=== PATIENT | male | born 1975 | race Caucasian/White ===

== ENCOUNTER 2019-02-23 09:47 | Inpatient (IN) | payer MEDICAID, OTHER ==
[2019-02-23] MEDS ORDERED: Sodium Chloride 0.9% 1,000 ML IV STA (10:14)
[2019-02-23] MEDS ORDERED: Ondansetron 4 MG/2 ML SDV IVPUSH ONE ×3 (10:14→17:13)
[2019-02-23] MEDS ORDERED: Sodium Chloride 0.9% 10 ML Syringe FLUSH PRN (10:14)
[2019-02-23] MEDS ORDERED: HYDROmorphone 1 MG/ML Syringe IVPUSH ONE ×2 (10:15→13:07)
[2019-02-23] MEDS ORDERED: Sodium Chloride 0.9% 1,000 ML IV SCH (14:00)
--- NOTE | 2019-02-23 14:00 | EDM.PDOC ---
<ShelbyhardikJamie Leon - Last Filed: 02/23/19 13:54> ED HPI GENERAL MEDICAL PROBLEM - General Chief Complaint: Gastrointestinal Problem Stated Complaint: VOMITING Time Seen by Provider: 02/23/19 10:05 Source of Information: Reports: Patient History Limitations: Reports: No Limitations - History of Present Illness INITIAL COMMENTS - FREE TEXT/NARRATIVE: The patient presents with abdominal pain, nausea and vomiting This has been going on for about a week. He was seen here last month for the same and had a work up with labs. He did better for a week. He was seen at the clinic 2 weeks ago. He was found to have mono. He says he has no appendix. He has no fever or chills. He has no chest pain or shortness of breath. He says he cannot keep anything down. He has a nerve stimulator in his back. He has no dysuria or hematuria. Onset: Gradual Duration: Week(s): Location: Reports: Abdomen Quality: Reports: Sharp Severity: Severe Improves with: Reports: None Worsens with: Reports: None Associated Symptoms: Reports: Nausea/Vomiting. 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 [No Known Home Meds] 02/23/19 [History] Past Medical History - Past Surgical History GI Surgical History: Reports: Appendectomy, Hernia Repair/Other Neurological Surgical History: Reports: Spinal Fusion Musculoskeletal Surgical History: Reports: Other (See Below) Other Musculoskeletal Surgeries/Procedures:: rodding of tibia, left ankle fracture, Social & Family History - Tobacco Use Packs/Tins Daily: 0.3 Used Tobacco, but Quit: No - Caffeine Use Caffeine Use: Reports: None - Recreational Drug Use Recreational Drug Use: No ED ROS GENERAL - Review of Systems Review Of Systems: See Below Constitutional: Reports: No Symptoms HEENT: Reports: No Symptoms Respiratory: Reports: No Symptoms Cardiovascular: Reports: No Symptoms Endocrine: Reports: No Symptoms GI/Abdominal: Reports: Abdominal Pain, Nausea, Vomiting : Reports: No Symptoms Musculoskeletal: Reports: No Symptoms Skin: Reports: No Symptoms Neurological: Reports: No Symptoms ED EXAM, GI/ABD - Physical Exam Exam: See Below Exam Limited By: No Limitations General Appearance: Alert, No Apparent Distress Ears: Normal External Exam Nose: Normal Inspection Head: Atraumatic, Normocephalic Neck: Normal Inspection Respiratory/Chest: No Respiratory Distress, Lungs Clear, Normal Breath Sounds Cardiovascular: Regular Rate, Rhythm, No Edema, No Murmur GI/Abdominal Exam: Soft, No Organomegaly, No Mass, Tender (Moderate to severe pain to the abdomen and worse in the left upper abdomen) Back Exam: Normal Inspection Extremities: Normal Inspection Course - Vital Signs Last Recorded V/S: Last Vital Signs Temp 36.6 C 02/23/19 10:00 Pulse 93 02/23/19 10:00 Resp 18 02/23/19 10:00 BP 146/97 H 02/23/19 10:00 Pulse Ox 93 L 02/23/19 10:00 - Orders/Labs/Meds Orders: Active Orders 24 hr Category Date Time Status Admission Status [Patient Status] [ADT] Routine ADT 02/23/19 17:54 Active Ambulate [RC] PER UNIT ROUTINE Care 02/23/19 17:58 Active CIWAA Assessment [RC] Q4H Care 02/23/19 18:02 Active Communication Order [RC] ASDIRECTED Care 02/23/19 18:11 Active NG [Gastrointestinal Tube Mgmt] [RC] ASDIRECTED Care 02/23/19 17:56 Active Peripheral IV Care [RC] . DIRECTED Care 02/23/19 10:14 Active Abdomen Ltd [US] Stat Exams 02/23/19 11:11 Taken Abdomen Pelvis w Cont [CT] Stat Exams 02/23/19 13:37 Taken BASIC METABOLIC PANEL,BMP [CHEM] AM Lab 02/24/19 05:11 Ordered BASIC METABOLIC PANEL,BMP [CHEM] AM Lab 02/25/19 05:11 Ordered D5 1/2 NS w/ 20 mEq/L KCl 1,000 ml Med 02/23/19 18:00 Active IV ASDIRECTED LORazepam [Ativan] Med 02/23/19 18:08 Active 1 mg IVPUSH Q1H PRN Sodium Chloride 0.9% [Normal Saline] 1,000 ml Med 02/23/19 14:00 Active IV ASDIRECTED Sodium Chloride 0.9% [Saline Flush] Med 02/23/19 10:14 Active 10 ml FLUSH ASDIRECTED PRN ED Antiemetic Medication Reflex [OM.PC] Stat Oth 02/23/19 10:14 Ordered Peripheral IV Insertion Adult [OM.PC] Stat Ot 02/23/19 10:14 Ordered Schedule Procedure [COMM] Timed Oth 02/24/19 10:00 Ordered Medication Orders Sodium Chloride (Normal Saline) 1,000 mls @ 200 mls/hr IV ASDIRECTED TONY Last Admin: 02/23/19 14:12 Dose: 200 mls/hr Potassium Chloride/Dextrose/Sod Cl (D5 1/2 Ns W/ 20 Meq/L Kcl) 1,000 mls @ 85 mls/hr IV ASDIRECTED TONY Lorazepam (Ativan) 1 mg IVPUSH Q1H PRN PRN Reason: Agitation Sodium Chloride (Saline Flush) 10 ml FLUSH ASDIRECTED PRN PRN Reason: Keep Vein Open Last Admin: 02/23/19 10:57 Dose: 10 ml Labs: Laboratory Tests 02/23/19 02/23/19 02/23/19 Range/Units 10:20 10:20 10:45 WBC 7.80 (4.23-9.07) K/mm3 RBC 5.42 (4.63-6.08) M/mm3 Hgb 17.1 (13.7-17.5) gm/L Hct 49.6 (40.1-51.0) % MCV 91.5 D (79.0-92.2) fl MCH 31.5 (25.7-32.2) pg MCHC 34.5 (32.2-35.5) g/dl RDW Std Deviation 40.9 (35.1-43.9) fL Plt Count 262 D (163-337) K/mm3 MPV 8.7 L (9.4-12.3) fl Neut % (Auto) 50.6 (34.0-67.9) % Lymph % (Auto) 39.7 (21.8-53.1) % [place] % (Auto) 6.3 (5.3-12.2) % Eos % (Auto) 2.7 (0.8-7.0) Baso % (Auto) 0.4 (0.1-1.2) % Neut # (Auto) 3.95 (1.78-5.38) K/mm3 Lymph # (Auto) 3.10 (1.32-3.57) K/mm3 [place] # (Auto) 0.49 (0.30-0.82) K/mm3 Eos # (Auto) 0.21 (0.04-0.54) K/mm3 Baso # (Auto) 0.03 (0.01-0.08) K/mm3 Sodium 139 (136-145) mEq/L Potassium 4.0 (3.5-5.1) mEq/L Chloride 102 (98-107) mEq/L Carbon Dioxide 24 (21-32) mEq/L Anion Gap 17.0 H (5-15) BUN 12 (7-18) mg/dL Creatinine 0.9 (0.7-1.3) mg/dL Est Cr Clr Drug Dosing 109.27 mL/min Estimated GFR (MDRD) > 60 (>60) mL/min BUN/Creatinine Ratio 13.3 L (14-18) Glucose 107 H (74-106) mg/dL Calcium 8.5 (8.5-10.1) mg/dL Total Bilirubin 0.5 (0.2-1.0) mg/dL AST 50 H (15-37) U/L ALT 98 H (16-63) U/L Alkaline Phosphatase 84 (46-116) U/L Total Protein 7.6 (6.4-8.2) g/dl Albumin 4.1 (3.4-5.0) g/dl Globulin 3.5 gm/dL Albumin/Globulin Ratio 1.2 (1-2) Lipase 176 (73-393) U/L Urine Color Light yellow (Yellow) Urine Appearance Clear (Clear) Urine pH 6.0 (5.0-8.0) Ur Specific [place] <=1.005 (1.005-1.030) Urine Protein Negative (Negative) Urine Glucose (UA) Negative (Negative) Urine Ketones Negative (Negative) Urine Occult Blood Negative (Negative) Urine Nitrite Negative (Negative) Urine Bilirubin Negative (Negative) Urine Urobilinogen 0.2 (0.2-1.0) Ur Leukocyte Esterase Negative (Negative) Urine RBC Not seen (0-5) /hpf Urine WBC Not seen (0-5) /hpf Ur Epithelial Cells 0-5 (0-5) /hpf Urine Bacteria Rare (FEW) /hpf Urine Mucus Not seen (FEW) /hpf Meds: Medications Generic Name Dose Route Start Last Admin Trade Name Freq PRN Reason Stop Dose Admin Sodium Chloride 1,000 mls @ 200 mls/hr 02/23/19 14:00 02/23/19 14:12 Normal Saline IV 200 mls/hr ASDIRECTED TONY Administration Potassium Chloride/Dextrose/Sod Cl 1,000 mls @ 85 mls/hr 02/23/19 18:00 D5 1/2 Ns W/ 20 Meq/L Kcl IV ASDIRECTED TONY Lorazepam 1 mg 02/23/19 18:08 Ativan IVPUSH Q1H PRN Agitation Sodium Chloride 10 ml 02/23/19 10:14 02/23/19 10:57 Saline Flush FLUSH 10 ml ASDIRECTED PRN Administration Keep Vein Open Discontinued Medications Generic Name Dose Route Start Last Admin Trade Name Freq PRN Reason Stop Dose Admin Diatrizoate Meglum/Diatrizoate Sod 90 ml 02/23/19 15:34 02/23/19 15:41 Gastrografin 37% PO 02/23/19 15:35 90 ml ONETIME ONE Administration Fentanyl 50 mcg 02/23/19 17:18 02/23/19 17:40 Sublimaze IVPUSH 02/23/19 17:19 50 mcg ONETIME ONE Administration Hydromorphone HCl 1 mg 02/23/19 10:15 02/23/19 10:41 Dilaudid IVPUSH 02/23/19 10:16 1 mg ONETIME ONE Administration Hydromorphone HCl 1 mg 02/23/19 13:07 02/23/19 13:16 Dilaudid IVPUSH 02/23/19 13:08 1 mg ONETIME ONE Administration Sodium Chloride 1,000 mls @ 1,000 mls/hr 02/23/19 10:14 02/23/19 10:41 Normal Saline IV 02/23/19 11:13 1,000 mls/hr .BOLUS STA Administration Iopamidol 100 ml 02/23/19 15:34 02/23/19 15:43 Isovue-300 (61%) IVPUSH 02/23/19 15:35 100 ml ONETIME ONE Administration Lorazepam 1 mg 02/23/19 17:13 02/23/19 17:41 Ativan IVPUSH 02/23/19 17:14 1 mg ONETIME ONE Administration Ondansetron HCl 4 mg 02/23/19 10:14 02/23/19 10:41 Zofran IVPUSH 02/23/19 10:15 4 mg ONETIME ONE Administration Ondansetron HCl 4 mg 02/23/19 14:36 02/23/19 15:28 Zofran IVPUSH 02/23/19 14:37 4 mg ONETIME ONE Administration Ondansetron HCl 4 mg 02/23/19 17:13 02/23/19 17:36 Zofran IVPUSH 02/23/19 17:14 4 mg ONETIME ONE Administration Sodium Chloride 10 ml 02/23/19 15:34 02/23/19 15:43 Saline Flush FLUSH 02/23/19 15:35 10 ml ONETIME ONE Administration - Re-Assessments/Exams Free Text/Narrative Re-Assessment/Exam: 02/23/19 14:05 I ordered an IV NS 1L bolus, zofran 4mg IV, dilaudid 1mg IV, labs, UA and a CT of his abdomen and pelvis. His CBC and CMP look good. His UA shows no UTI or blood. He has the nerve stimulator and says he cannot get a CT. I tried to convince him he can but he would not listen. I then ordered a US. The US showed nothing acute. He is still having pain so I ordered something more for pain. I called [facility] and an electro optical engineer said he can get a CT scan. He was okay with it. It is the end of my shift. I will have Dr Babcock take over. Departure - Departure Disposition: Refer to Observation Clinical Impression: Partial gastric outlet obstruction - Discharge Information Referrals: PCP,Not In Area [Primary Care Provider] - Forms: ED Department Discharge <Reyes Babcock - Last Filed: 02/23/19 18:56> Course - Re-Assessments/Exams Free Text/Narrative Re-Assessment/Exam: 02/23/19 14:32 I assumed Care from Dr. Wu and evaluated and examined the patient his nauseous is starting to return he is awaiting his CAT scan at this point he's been keeping fluids down pretty good since then emergency room now over 3 hours but his Zofran is starting to wear off abdominal exam shows active bowel sounds very tender left side of his abdomen very difficult to evaluate. 02/23/19 16:[address] which is very concerning for a distended stomach with oral contrast into the distal esophagus because is no place to go is a relative obstruction at the gastroduodenal junction. I discussed this with Dr. Montemayor surgeon mattress and foundation sewer who will come and evaluate the patient after we get an NG tube in him. Dr. Montemayor cannot come in right away as she is starting a procedure very soon that shouldn't take too long. 02/23/19 18:54 We attempted NG tube several times and this could not be obtained. Dr. Montemayor was contacted recommended just holding off on the nasogastric tube. Anticipate EGD tomorrow nothing by mouth after midnight and if they need to place an NG tube at that time they will. Departure - Departure Time of Disposition: 17:55
[2019-02-23] MEDS ORDERED: Diatrizoate Meglumine/Diatrizoate Sodium 37% 120 ML Bottle PO ONE (15:34)
[2019-02-23] MEDS ORDERED: Sodium Chloride 0.9% 10 ML Syringe FLUSH ONE (15:34)
[2019-02-23] MEDS ORDERED: Iopamidol 612 MG/ML 100 ML Bottle IVPUSH ONE (15:34)
[2019-02-23] MEDS ORDERED: LORazepam 2 MG/ML SDV IVPUSH ONE (17:13)
[2019-02-23] MEDS ORDERED: fentaNYL 100 MCG/2 ML SDV IVPUSH ONE (17:18)
[2019-02-23] MEDS ORDERED: LORazepam 2 MG/ML SDV IVPUSH PRN (18:08)
[2019-02-23] MEDS: Morphine 2 MG/ML Syringe IVPUSH PRN (21:55)
--- NOTE | 2019-02-23 22:16 | HP ---
DATE OF ADMISSION: 02/23/2019 ADMITTING DIAGNOSIS: Duodenal obstruction. 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 He presents with a one month history of failure to thrive. He has been only able to tolerate small amounts of food. He has lost about 15 pounds. He says he eats and drinks sometimes even small amounts of food and vomits immediately. Prior to a month, ago, he said he was in his normal state of health. The patient has no previous episodes. He denies any previous abdominal pain or gastritis. He has no reflux or acid peptic disease. He never had an upper endoscopy. He can no longer tolerate his nausea and vomiting, so he presented to the ED today. CT scan showed duodenal obstruction. PAST MEDICAL HISTORY: Back pain. PAST SURGICAL HISTORY: He has had tibial rodding, left ankle fracture, spinal fusion in the cervical spine, left inguinal hernia repair, appendectomy. SOCIAL HISTORY: He drinks 6 to 12 beers daily. He smokes about a third of a pack of cigarettes daily. Denies illicit drug use. REVIEW OF SYSTEMS: A 10-system review is negative except for the nausea and vomiting as listed above. FAMILY HISTORY: Notable for gastric and pancreatic cancer in his father. The remainder of his family history is unremarkable. PHYSICAL EXAMINATION: GENERAL: He is alert. He is in no obvious distress. He looks comfortable. VITAL SIGNS: Temperature 98.6, pulse 93, respiration 18, blood pressure 146/97, saturating 93% on room air. HEAD AND NECK: Normocephalic, atraumatic. He is anicteric. His neck is supple. Full range of motion. LUNGS: Clear to auscultation bilaterally. HEART: Regular rate and rhythm. No clicks, murmurs, or rubs. ABDOMEN: Soft. He has some tenderness in the epigastrium and left upper quadrant. No rebound or guarding. He has a normal note to percussion. No hernias are palpable. No palpable masses. EXTREMITIES: No clubbing, cyanosis, or edema. No calf tenderness. INTEGUMENT: No rashes. No lesions. No petechiae. No jaundice. NEUROLOGIC: Cranial nerves are grossly intact. Nonfocal. His sensation and movement are preserved in all 4 extremities. PSYCHIATRIC: He has appropriate affect and demeanor. LABORATORY DATA: Labs are notable for normal white count with no left shift. Chemistries: Anion gap is 17, BUN and creatinine are within normal limits. BUN and creatinine ratio is 13.3, glucose 107, AST and ALT at 50 and 98. Bilirubin is notably 0.5. Urine is unremarkable. I have had a thorough review of the CT scan. It appears he has a duodenal obstruction at the third to fourth portion, it is a bit of an unusual location for duodenal obstruction from acid peptic disease. It is typically first to second portion. His stomach is very dilated, full of contrast. I do not appreciate contrast beyond the third portion of the duodenum. ASSESSMENT: Duodenal obstruction, likely secondary to duodenitis secondary to alcohol abuse. PLAN: I have recommended nasogastric tube to be placed to evacuate his stomach to prevent perforation and to improve his comfort. I will schedule him for an upper endoscopy. This will be done tomorrow as this is clearly not an emergency. My findings during the endoscopy will determine future treatment. At this point, I do not see a need to place him on Protonix since he has no history of acid peptic disease. I will hold his Lovenox until I will be performing biopsies tomorrow morning. In the meantime, I will give him IV fluids overnight and see him in the morning. IRISH /[id number]
[2019-02-24] MEDS: D5 1/2 NS w/ 20 mEq/L KCl 1,000 ML IV SCH ×2 (00:08→14:42)
[2019-02-24] MEDS: Morphine 2 MG/ML Syringe IVPUSH PRN ×2 (02:36→07:02)
[2019-02-24] MEDS: Ondansetron 4 MG/2 ML SDV IVPUSH PRN ×2 (08:21→21:16)
--- NOTE | 2019-02-24 09:43 | PCM.PREANE ---
Preanesthetic Assessment - Anesthesia/Transfusion/Family Hx Anesthesia History: Prior Anesthesia Without Reaction Family History of Anesthesia Reaction: No Transfusion History: No Prior Transfusion(s) - Review of Systems General: Malaise Pulmonary: No Symptoms Cardiovascular: No Symptoms Gastrointestinal: Abdominal Pain, Constipation, Decreased Appetite, Nausea, Vomiting Neurological: No Symptoms, Numbness (fingers), Other (neurological stimulator in neck for chronic pain in neck and shoulder) - Physical Assessment NPO Status Date: 02/24/19 NPO Status Time: 00:00 Vital Signs: Last Vital Signs Temp 36.8 C 02/24/19 08:20 Pulse 90 02/24/19 08:20 Resp 14 02/24/19 08:20 BP 122/97 H 02/24/19 08:20 Pulse Ox 94 L 02/24/19 08:20 Height: 1.78 m Weight: 84.867 kg ASA Class: 3 Mental Status: Alert & Oriented x3 Airway Class: Mallampati = 2 Dentition: Reports: Normal Dentition Thyro-Mental Finger Breadths: 2 Mouth Opening Finger Breadths: 2 ROM/Head Extension: Limited/Partial Lungs: Clear to Auscultation, Normal Respiratory Effort Cardiovascular: Regular Rate, Regular Rhythm - Lab Values: Laboratory Last Values WBC 7.80 K/mm3 (4.23-9.07) 02/23/19 10:20 RBC 5.42 M/mm3 (4.63-6.08) 02/23/19 10:20 Hgb 17.1 gm/L (13.7-17.5) 02/23/19 10:20 Hct 49.6 % (40.1-51.0) 02/23/19 10:20 MCV 91.5 fl (79.0-92.2) D 02/23/19 10:20 MCH 31.5 pg (25.7-32.2) 02/23/19 10:20 MCHC 34.5 g/dl (32.2-35.5) 02/23/19 10:20 RDW Std Deviation 40.9 fL (35.1-43.9) 02/23/19 10:20 Plt Count 262 K/mm3 (163-337) D 02/23/19 10:20 MPV 8.7 fl (9.4-12.3) L 02/23/19 10:20 Neut % (Auto) 50.6 % (34.0-67.9) 02/23/19 10:20 Lymph % (Auto) 39.7 % (21.8-53.1) 02/23/19 10:20 [place] % (Auto) 6.3 % (5.3-12.2) 02/23/19 10:20 Eos % (Auto) 2.7 (0.8-7.0) 02/23/19 10:20 Baso % (Auto) 0.4 % (0.1-1.2) 02/23/19 10:20 Neut # (Auto) 3.95 K/mm3 (1.78-5.38) 02/23/19 10:20 Lymph # (Auto) 3.10 K/mm3 (1.32-3.57) 02/23/19 10:20 [place] # (Auto) 0.49 K/mm3 (0.30-0.82) 02/23/19 10:20 Eos # (Auto) 0.21 K/mm3 (0.04-0.54) 02/23/19 10:20 Baso # (Auto) 0.03 K/mm3 (0.01-0.08) 02/23/19 10:20 Sodium 137 mEq/L (136-145) 02/24/19 04:47 Potassium 4.1 mEq/L (3.5-5.1) 02/24/19 04:47 Chloride 105 mEq/L (98-107) 02/24/19 04:47 Carbon Dioxide 24 mEq/L (21-32) 02/24/19 04:47 Anion Gap 12.1 (5-15) 02/24/19 04:47 BUN 10 mg/dL (7-18) 02/24/19 04:47 Creatinine 1.0 mg/dL (0.7-1.3) 02/24/19 04:47 Est Cr Clr Drug Dosing 98.35 mL/min 02/24/19 04:47 Estimated GFR (MDRD) > 60 mL/min (>60) 02/24/19 04:47 BUN/Creatinine Ratio 10.0 (14-18) L 02/24/19 04:47 Glucose 83 mg/dL (74-106) 02/24/19 04:47 Calcium 8.2 mg/dL (8.5-10.1) L 02/24/19 04:47 Total Bilirubin 0.5 mg/dL (0.2-1.0) 02/23/19 10:20 AST 50 U/L (15-37) H 02/23/19 10:20 ALT 98 U/L (16-63) H 02/23/19 10:20 Alkaline Phosphatase 84 U/L (46-116) 02/23/19 10:20 Total Protein 7.6 g/dl (6.4-8.2) 02/23/19 10:20 Albumin 4.1 g/dl (3.4-5.0) 02/23/19 10:20 Globulin 3.5 gm/dL 02/23/19 10:20 Albumin/Globulin Ratio 1.2 (1-2) 02/23/19 10:20 Lipase 176 U/L (73-393) 02/23/19 10:20 Urine Color Light yellow (Yellow) 02/23/19 10:45 Urine Appearance Clear (Clear) 02/23/19 10:45 Urine pH 6.0 (5.0-8.0) 02/23/19 10:45 Ur Specific [place] <=1.005 (1.005-1.030) 02/23/19 10:45 Urine Protein Negative (Negative) 02/23/19 10:45 Urine Glucose (UA) Negative (Negative) 02/23/19 10:45 Urine Ketones Negative (Negative) 02/23/19 10:45 Urine Occult Blood Negative (Negative) 02/23/19 10:45 Urine Nitrite Negative (Negative) 02/23/19 10:45 Urine Bilirubin Negative (Negative) 02/23/19 10:45 Urine Urobilinogen 0.2 (0.2-1.0) 02/23/19 10:45 Ur Leukocyte Esterase Negative (Negative) 02/23/19 10:45 Urine RBC Not seen /hpf (0-5) 02/23/19 10:45 Urine WBC Not seen /hpf (0-5) 02/23/19 10:45 Ur Epithelial Cells 0-5 /hpf (0-5) 02/23/19 10:45 Urine Bacteria Rare /hpf (FEW) 02/23/19 10:45 Urine Mucus Not seen /hpf (FEW) 02/23/19 10:45 - Allergies Allergies/Adverse Reactions: Allergies Allergy/AdvReac Type Severity Reaction Status Date / Time No Known Allergies Allergy Verified 02/24/19 03:20 - Blood Blood Available: No Product(s) Available: None - Anesthesia Plan Pre-Op Medication Ordered: None - Acknowledgements Anesthesia Type Planned: General Anesthesia Pt an Appropriate Candidate for the Planned Anesthesia: Yes Pt/Guardian Understands and Agrees with Anesthesia Plan: Yes PreAnesthesia Questionnaire HEENT History: Reports: Impaired Vision, Other (See Below) Other HEENT History: wears glasses but currently broken Musculoskeletal History: Reports: Other (See Below) (fussion of neck C4, C5-C6) Neurological History: Reports: Concussion Hematologic History: Reports: Other (See Below) Other Hematologic History: history of having blood clots in his lungs - Infectious Disease History Infectious Disease History: Reports: Chicken Pox, Influenza, Mononucleosis - Past Surgical History HEENT Surgical History: Reports: None GI Surgical History: Reports: Appendectomy, Hernia Repair/Other Neurological Surgical History: Reports: Spinal Fusion Musculoskeletal Surgical History: Reports: Nerve Relocation, Other (See Below) Other Musculoskeletal Surgeries/Procedures:: rodding of tibia, left ankle fracture, fused bones in his neck and has cadaver bones in neck as well. - SUBSTANCE USE Smoking Status *Q: Light Tobacco Smoker Tobacco Use Within Last Twelve Months: Smokeless Tobacco, Snuff/Dip Second Hand Smoke Exposure: No Days Per Week of Alcohol Use: 7 Number of Drinks Per Day: 4 Total Drinks Per Week: 28 Date of Last Drink: 02/22/19 Recreational Drug Use History: No - HOME MEDS Home Medications: Home Meds Cetirizine [ZyrTEC] 1 tab PO BEDTIME PRN 02/24/19 [History] L.acidoph,Paracasei, B.lactis [Probiotic] 1 each PO DAILY 02/24/19 [History] - CURRENT (IN HOUSE) MEDS Current Meds: Current Medications Potassium Chloride/Dextrose/Sod Cl (D5 1/2 Ns W/ 20 Meq/L Kcl) 1,000 mls @ 85 mls/hr IV ASDIRECTED TONY Last Admin: 02/24/19 00:08 Dose: 85 mls/hr Lorazepam (Ativan) 1 mg IVPUSH Q1H PRN PRN Reason: Agitation Morphine Sulfate (Morphine) 2 mg IVPUSH Q2H PRN PRN Reason: Pain Last Admin: 02/24/19 07:02 Dose: 2 mg Ondansetron HCl (Zofran) 4 mg IVPUSH Q4H PRN PRN Reason: Nausea Last Admin: 02/24/19 08:21 Dose: 4 mg Sodium Chloride (Saline Flush) 10 ml FLUSH ASDIRECTED PRN PRN Reason: Keep Vein Open Last Admin: 02/23/19 10:57 Dose: 10 ml Discontinued Medications Diatrizoate Meglum/Diatrizoate Sod (Gastrografin 37%) 90 ml PO ONETIME ONE Stop: 02/23/19 15:35 Last Admin: 02/23/19 15:41 Dose: 90 ml Fentanyl (Sublimaze) 50 mcg IVPUSH ONETIME ONE Stop: 02/23/19 17:19 Last Admin: 02/23/19 17:40 Dose: 50 mcg Hydromorphone HCl (Dilaudid) 1 mg IVPUSH ONETIME ONE Stop: 02/23/19 10:16 Last Admin: 02/23/19 10:41 Dose: 1 mg Hydromorphone HCl (Dilaudid) 1 mg IVPUSH ONETIME ONE Stop: 02/23/19 13:08 Last Admin: 02/23/19 13:16 Dose: 1 mg Sodium Chloride (Normal Saline) 1,000 mls @ 1,000 mls/hr IV .BOLUS STA Stop: 02/23/19 11:13 Last Admin: 02/23/19 10:41 Dose: 1,000 mls/hr Sodium Chloride (Normal Saline) 1,000 mls @ 200 mls/hr IV ASDIRECTED TONY Last Admin: 02/23/19 14:12 Dose: 200 mls/hr Iopamidol (Isovue-300 (61%)) 100 ml IVPUSH ONETIME ONE Stop: 02/23/19 15:35 Last Admin: 02/23/19 15:43 Dose: 100 ml Lorazepam (Ativan) 1 mg IVPUSH ONETIME ONE Stop: 02/23/19 17:14 Last Admin: 02/23/19 17:41 Dose: 1 mg Ondansetron HCl (Zofran) 4 mg IVPUSH ONETIME ONE Stop: 02/23/19 10:15 Last Admin: 02/23/19 10:41 Dose: 4 mg Ondansetron HCl (Zofran) 4 mg IVPUSH ONETIME ONE Stop: 02/23/19 14:37 Last Admin: 02/23/19 15:28 Dose: 4 mg Ondansetron HCl (Zofran) 4 mg IVPUSH ONETIME ONE Stop: 02/23/19 17:14 Last Admin: 02/23/19 17:36 Dose: 4 mg Sodium Chloride (Saline Flush) 10 ml FLUSH ONETIME ONE Stop: 02/23/19 15:35 Last Admin: 02/23/19 15:43 Dose: 10 ml
[2019-02-24] MEDS ORDERED: Ondansetron 4 MG/2 ML SDV ONE (09:53)
[2019-02-24] MEDS ORDERED: fentaNYL 100 MCG/2 ML SDV ONE (09:54)
[2019-02-24] MEDS ORDERED: Propofol 200 MG/20 ML SDV ONE (09:54)
[2019-02-24] MEDS ORDERED: Lidocaine 1% 4 ML ONE (09:55)
[2019-02-24] MEDS ORDERED: Succinylcholine/Normal Saline 100 MG/5 ML Syringe ONE (09:55)
[2019-02-24] MEDS ORDERED: Midazolam 1 MG/ML 2 ML SDV ONE (09:55)
[2019-02-24] MEDS ORDERED: Lactated Ringers 1,000 ML ONE (10:12)
--- NOTE | 2019-02-24 10:34 | PCM.POSTAN ---
POST ANESTHESIA ASSESSMENT - MENTAL STATUS Mental Status: Alert, Oriented - VITAL SIGNS Vital Signs: Last Vital Signs Temp 36.8 C 02/24/19 08:20 Pulse 90 02/24/19 08:20 Resp 14 02/24/19 08:20 BP 122/97 H 02/24/19 08:20 Pulse Ox 94 L 02/24/19 08:20 - RESPIRATORY Respiratory Status: Respiratory Rate WNL, Airway Patent, O2 Saturation Stable, Supplemental Oxygen - CARDIOVASCULAR CV Status: Pulse Rate WNL, Blood Pressure Stable - GASTROINTESTINAL GI Status: No Symptoms - PAIN Pain Score: 0 - POST OP HYDRATION Hydration Status: Adequate & Stable - OBSERVATIONS Free Text/Narrative:: no anesthesia complications noted
--- NOTE | 2019-02-24 10:46 | PCM48HPAN ---
Post Anesthesia Note - EVALUATION WITHIN 48HRS OF ANESTHETIC Vital Signs in Normal Range: Yes Patient Participated in Evaluation: Yes Respiratory Function Stable: Yes Airway Patent: Yes Cardiovascular Function Stable: Yes Hydration Status Stable: Yes Pain Control Satisfactory: Yes Nausea and Vomiting Control Satisfactory: Yes Mental Status Recovered: Yes Vital Signs: Last Vital Signs Temp 36.8 C 02/24/19 08:20 Pulse 90 02/24/19 08:20 Resp 14 02/24/19 08:20 BP 122/97 H 02/24/19 08:20 Pulse Ox 94 L 02/24/19 08:20 - COMMENTS/OBSERVATIONS Free Text/Narrative:: no anesthesia complications noted
--- NOTE | 2019-02-24 10:56 | PN ---
DATE OF SERVICE: 02/24/2019 SUBJECTIVE: Events Overnight: The patient refused multiple attempts of a nasogastric tube placement. He continues to complain of pain and nausea secondary to duodenal obstruction. Both, I and multiple nurses have tried to explain to him that nasogastric tube will decompress him and make his nausea and pain improve substantially and it will also make his impending EGD far more safe because it will decrease his risk of aspiration during induction. He is still refusing any further attempts at placing a nasogastric tube; however, he is still complaining of nausea and abdominal pain. OBJECTIVE: GENERAL: This morning, he is alert and in no obvious distress. VITAL SIGNS: Temperature 98.2, pulse 90, respirations 14, blood pressure 122/97, saturating 94% on room air. HEAD AND NECK: Normocephalic and atraumatic. NECK: Supple. Full range of motion. LUNGS: Clear to auscultation bilaterally. HEART: Regular rate and rhythm. No clicks, murmurs, or rubs. ABDOMEN: Mildly distended. He is tender in the left upper quadrant and epigastrium. No generalized rebound or guarding. LABORATORY DATA: Labs showed glucose of 83, calcium 8.2, and BUN creatinine ratio of 10. The remainder of his chemistries are unremarkable. ASSESSMENT: Duodenal obstruction, likely related to alcoholic duodenitis. PLAN: He is on the CIWA protocol. He has been consented for an EGD. I have thoroughly discussed with him the major risks, benefits, and alternatives. The risks being aspiration, pneumonia, laryngeal spasm, bleeding, and further surgery. I have explained to him that if he has a complete obstruction, he will have to be transferred to a higher level of care. If there is a partial obstruction, we could try treating with conservative management and advancing his diet as tolerated. I suspect, he will have to be transferred. I will get a biopsy in the meantime to rule out a rare, but possible duodenal cancer and hopefully come up with a pathological reason for his obstruction, he expressed understanding. IRISH /[id number]
--- NOTE | 2019-02-24 14:10 | OR ---
DATE OF OPERATION: 02/24/2019 SURGEON: Jimmy Montemayor MD PREOPERATIVE DIAGNOSIS: 1. Duodenitis. 2. Duodenal obstruction. POSTOPERATIVE DIAGNOSIS: 1. Grade 1 esophagitis. 2. No evidence of duodenal obstruction. OPERATION PERFORMED: Diagnostic EGD. FINDINGS: Grade 1 esophagitis. The 4th, 3rd, 2nd and 1st portions of the duodenum were completely normal. There was no evidence of obstruction. No duodenitis. No gastritis. He has some mild esophagitis. This may be related to nasogastric tube placement, which was eventually unsuccessful. ANESTHESIA: General with endotracheal intubation. PATHOLOGY: None. ESTIMATED BLOOD LOSS: None. DISPOSITION: Stable at the end of the procedure. INDICATION: Cruz is a 43-year-old male who presented to the ED with abdominal pain, nausea, and vomiting. He drinks 6-12 beers daily. He had a CT scan to investigate abdominal pain, nausea, and vomiting. The p.o. contrast reached duodenum, but did not pass the 3rd portion. The 3rd portion of the duodenum evidenced, which was read as a duodenal obstruction. Radiographically, he was offered an EGD for diagnosis. He was fully informed of the major risks, benefits, and alternatives. Risks include, but are not limited to perforation of the GI tract, bleeding, aspiration pneumonia, laryngeal spasm, further surgery, and many others. He gave informed consent. DESCRIPTION OF PROCEDURE: Cruz was brought to the gastro suite and placed in the supine position on the stretcher. He was given general anesthesia and intubated. A bite block was placed. Copious lubrication was used. I passed the scope into the proximal esophagus. I advanced the scope keeping the lumen in view at all times. I entered the stomach. I found no ulcerations and the stomach was empty. There was no contrast or secretions within the stomach. I passed the scope through the pylorus and advanced the scope to the jejunum. I slowly investigated the mucosa of the duodenum from the jejunum back to the pylorus. There was no evidence of duodenitis. There were no obstructions. At this point, it is clear that this radiologic finding was erroneous. Retroflex view of the GE junction demonstrated a competent GE junction without hiatal hernia. Investigation of the esophagus demonstrated some mild erythema of the distal esophagus without evidence of Gabriel's. I evacuated the stomach of air and then slowly investigated the mucosa of the esophagus from the stomach back to the mouth and I found no further pathology in the esophagus. The scope was withdrawn. He was awakened from anesthesia and extubated. PLAN: I will return him to the floor and advance his diet as tolerated. IRISH /[id number]
[2019-02-24] MEDS: Acetaminophen 325 MG Tab PO PRN ×2 (14:27→21:15)
[2019-02-25] MEDS: D5 1/2 NS w/ 20 mEq/L KCl 1,000 ML IV SCH (02:34)
[2019-02-25] MEDS: Ondansetron 4 MG/2 ML SDV IVPUSH PRN ×4 (02:41→21:07)
[2019-02-25] MEDS: Acetaminophen 325 MG Tab PO PRN ×3 (03:36→14:39)
--- NOTE | 2019-02-25 11:38 | PN ---
DATE OF SERVICE: 02/25/2019 SUBJECTIVE: I drilled down a bit on his loose bowel movements. He now today admits that his loose bowel movements have not been for the last 2 weeks, he actually has had multiple loose bowel movements for the last 6 months. This has not been associated with abdominal pain. He says it started back in January. His Helicobacter pylori antigen was negative, C. diff was negative by PCR. He also has no white cells in his stool. I cannot find a clear etiology for his loose bowel movements. Lipase was repeated and this again is normal. He is tolerating a p.o. diet. He has had no bloody stools. Pain remains in the left upper quadrant. He was diagnosed with mononucleosis sometime around the Labor Day. This may explain his abdominal pain, although I do not have an official reading of the size of his spleen. It does not appear particularly enlarged on the CT scan. OBJECTIVE: GENERAL: He is alert. He appears in no obvious distress. VITAL SIGNS: Temperature 97.9, pulse 77, respiration 16, blood pressure 126/81, and saturating 96% on room air. LUNGS: Clear to auscultation bilaterally. HEART: Regular rate and rhythm. No clicks, murmurs, or rubs. ABDOMEN: Soft. He still has tenderness in the left upper quadrant. I cannot appreciate hepatosplenomegaly. No rebound or guarding. EXTREMITIES: No clubbing, cyanosis, or edema. LABORATORY DATA: I repeated his chemistries. It appears his electrolytes are fairly unremarkable, although his BUN is low at 4, BUN and creatinine ratio of 4.4, glucose is a bit high at 111, calcium 8.3. ASSESSMENT: Abdominal pain, no clear etiology. PLAN: I have consulted Dr. Villaseñor to drill down on his abdominal pain. We have ruled out all other surgical causes. MMGERARDO /[id number]
--- NOTE | 2019-02-25 13:38 | PCM.CONS ---
H&P History of Present Illness - General Date of Service: 02/25/19 Admit Problem/Dx: Admission Diagnosis/Problem Admission Diagnosis/Problem Duodenitis Source of Information: Patient, Old Records, Provider, RN Notes Reviewed - History of Present Illness Initial Comments - Free Text/Narative: This is a 43 yo white male with past medical hx/o back pain s/p stimulator device placement who was admitted for acute doudenitis. He was admitted under the services of Dr. Montemayor. He states he has been having intermittent watery- loose diarrhea for the past 6 months. He is orginally from [place] and just moved to [place] for a new job. He denies having been outside the country. No recent antibiotic use in the past 90 days and no unusual diet or drinks. He denies any Hx/o IBD or GI issues in the past. He notices that stress can bring on his diarrhea. He has no issues with milk except for flatulence and seems okay when he eats cheese. He denies any illicit drug use. Patient has never been formally evaluated or seen by GI in the past. His EGD here was unrevealing. He had inguinal hernia repair in the past. He still has his GB. So far he takes Imodium for symptomatic control and currently on clear liquid diet. The hospitalist services were consulted for further evaluation and management of his persistent diarrhea. Left Abdominal Pain Score (Numeric/FACES): 6 - Related Data Allergies/Adverse Reactions: Allergies Allergy/AdvReac Type Severity Reaction Status Date / Time No Known Allergies Allergy Verified 02/24/19 03:20 Home Medications: Home Meds Cetirizine [ZyrTEC] 1 tab PO BEDTIME PRN 02/24/19 [History] L.acidoph,Paracasei, B.lactis [Probiotic] 1 each PO DAILY 02/24/19 [History] Past Medical History HEENT History: Reports: Impaired Vision, Other (See Below) Other HEENT History: wears glasses but currently broken Musculoskeletal History: Reports: Other (See Below) (fussion of neck C4, C5-C6) Neurological History: Reports: Concussion Do You Have Enough Pump Supplies for Your Hospital Stay: No Hematologic History: Reports: Other (See Below) Other Hematologic History: history of having blood clots in his lungs - Infectious Disease History Infectious Disease History: Reports: Chicken Pox, Influenza, Mononucleosis - Past Surgical History HEENT Surgical History: Reports: None GI Surgical History: Reports: Appendectomy, Hernia Repair/Other Neurological Surgical History: Reports: Spinal Fusion Musculoskeletal Surgical History: Reports: Nerve Relocation, Other (See Below) Other Musculoskeletal Surgeries/Procedures:: rodding of tibia, left ankle fracture, fused bones in his neck and has cadaver bones in neck as well. Social & Family History - Family History Family Medical History: Noncontributory - Tobacco Use Smoking Status *Q: Light Tobacco Smoker Years of Tobacco use: 30 Packs/Tins Daily: 1 Used Tobacco, but Quit: No Second Hand Smoke Exposure: No - Caffeine Use Caffeine Use: Reports: None - Alcohol Use Days Per Week of Alcohol Use: 7 Number of Drinks Per Day: 4 Total Drinks Per Week: 28 Date of Last Drink: 02/22/19 - Recreational Drug Use Recreational Drug Use: No H&P Review of Systems - Review of Systems: Review Of Systems: See Below General: Reports: Chills. Denies: Fever HEENT: Reports: No Symptoms Pulmonary: Denies: Shortness of Breath Cardiovascular: Denies: Chest Pain Gastrointestinal: Reports: Abdominal Pain, Diarrhea. Denies: Nausea, Vomiting Genitourinary: Reports: No Symptoms Musculoskeletal: Reports: No Symptoms Skin: Reports: No Symptoms Psychiatric: Reports: No Symptoms Neurological: Denies: Dizziness, Syncope, Difficulty Walking, Weakness, Gait Disturbance Hematologic/Lymphatic: Denies: No Symptoms Immunologic: Denies: No Symptoms Exam - Exam Exam: See Below - Vital Signs Vital Signs: Last Vital Signs Temp 37.0 C 02/25/19 11:55 Pulse 69 02/25/19 11:55 Resp 16 02/25/19 11:55 BP 137/83 02/25/19 11:55 Pulse Ox 98 02/25/19 11:55 Weight: 84.232 kg - Exam General: Alert, Oriented, Cooperative HEENT: Conjunctiva Clear, EACs Clear, EOMI, Hearing Intact, Mucosa Moist & [place] , Nares Patent, Normal Nasal Septum, Posterior Pharynx Clear, Pupils Equal, Pupils Reactive Neck: Supple, Trachea Midline Lungs: Clear to Auscultation, Normal Respiratory Effort Cardiovascular: Regular Rate, Regular Rhythm GI/Abdominal Exam: Normal Bowel Sounds, Soft, No Distention, No Abnormal Bruit, Tender (left lower abdomen) (Male) Exam: Other (left inguinal scar). No: Hernia, Inguinal Lymphadenopathy Rectal (Males) Exam: Deferred Back Exam: Normal Inspection, Full Range of Motion Extremities: Normal Inspection, Normal Range of Motion, Non-Tender, No Pedal Edema, Normal Capillary Refill Skin: Warm, Dry, Intact Neuro Extensive - Mental Status: Oriented x3, Normal Mood/Affect, Normal Cognition, Memory Intact Neuro Extensive - Motor, Sensory, Reflexes: CN II-XII Intact, Normal Gait Psychiatric: Alert, Normal Affect, Normal Mood - Patient Data Lab Results Last 24 hrs: Laboratory Results - last 24 hr 02/24/19 02/25/19 Range/Units 19:38 05:12 Sodium 139 (136-145) mEq/L Potassium 3.8 (3.5-5.1) mEq/L Chloride 105 (98-107) mEq/L Carbon Dioxide 25 (21-32) mEq/L Anion Gap 12.8 (5-15) BUN 4 L (7-18) mg/dL Creatinine 0.9 (0.7-1.3) mg/dL Est Cr Clr Drug Dosing 109.27 mL/min Estimated GFR (MDRD) > 60 (>60) mL/min BUN/Creatinine Ratio 4.4 L (14-18) Glucose 111 H (74-106) mg/dL Calcium 8.3 L (8.5-10.1) mg/dL C.difficile [id number] Presumptive negative C. difficile Tox (PCR) Negative Result Diagrams: 02/23/19 10:20 02/25/19 05:12 Kumar Results Last 24 hrs: Microbiology 02/24/19 19:38 Stool for WBCs - Final Stool / Feces NO WBC SEEN REFERENCE RANGE: NO WBC SEEN 02/24/19 19:38 Helicobacter pylori Antigen - Final Stool / Feces NEGATIVE H. PYLORI AG REFERENCE RANGE: NEGATIVE Consult PN Assessment/Plan Procedures: Procedures COMPLETE CBC W/AUTO DIFF WBC (01/22/19) COMPREHEN METABOLIC PANEL (01/22/19) EMERGENCY DEPT VISIT (01/22/19) HYDRATE IV INFUSION ADD-ON (01/22/19) ROUTINE VENIPUNCTURE (01/22/19) THER/PROPH/DIAG INJ IV PUSH (01/22/19) URINALYSIS AUTO W/SCOPE (01/22/19) Problem List Initiated/Reviewed/Updated: Yes My Orders Last 24 Hours: My Active Orders 02/25/19 13:15 DRUG SCR 10 W REF CONF SERUM [REF] Stat Plan: Assessment: This is a 43 yo white male with 6 months hx/o interment watery to loose diarrhea who has a negative EGD. Watery-Loose Diarrhea - Suspect Functional Diarrhea vs Autoimmune Disease - No hx/o IBD or Autoimmune Disease - No recent travel outside the country, no recent antibiotic use in the past 90 days and no unusual diet or drinks - He is concern about Hanta Virus exposure - UDS to r/o Marijuana Use - Celiac work up: TTG, Vit D level and Gluten Free Diet - Avoid dairy products - Offered to screen for HIV-patient refused - Would not pursue Hanta Virus since management will not change - Need to see GI outpatient for further evaluation Plan: From the hospitalist standpoint, we recommend the following as above. Any changes or further recommendations will be based on the patient course. Thank you for the opportunity to participate in the management of this patient. We will follow him along with you.
[2019-02-25] MEDS: Morphine 2 MG/ML Syringe IVPUSH PRN (21:20)
[2019-02-26] MEDS: Morphine 2 MG/ML Syringe IVPUSH PRN ×2 (01:07→06:14)
[2019-02-26] MEDS: Ondansetron 4 MG/2 ML SDV IVPUSH PRN ×3 (03:46→16:22)
[2019-02-26] MEDS: Acetaminophen 325 MG Tab PO PRN ×2 (08:29→16:22)
--- NOTE | 2019-02-26 08:53 | PCM.CONSN ---
- General Info Date of Service: 02/26/19 Admission Dx/Problem (Free Text): Admission Diagnosis/Problem Admission Diagnosis/Problem Duodenitis Subjective Update: Follow Up Functional Status: Reports: Pain Controlled, Tolerating Diet, Ambulating, Urinating. Denies: New Symptoms - Review of Systems General: Denies: Fever, Chills HEENT: Reports: No Symptoms Pulmonary: Denies: Shortness of Breath Cardiovascular: Denies: Chest Pain, Dyspnea on Exertion, Lightheadedness Gastrointestinal: Reports: Abdominal Pain (left lower quandrant), Diarrhea (less ). Denies: Nausea, Vomiting Genitourinary: Reports: No Symptoms Musculoskeletal: Reports: No Symptoms Skin: Reports: No Symptoms Neurological: Denies: Confusion, Difficulty Walking, Weakness, Gait Disturbance Psychiatric: Denies: Depression, Anxiety, Agitation, Hallucinations Systems Review Comment:: No overnight or acute issues. He is tolerating gluten free diet and he now reports less diarrhea. - Patient Data Vitals - Most Recent: Last Vital Signs Temp 36.5 C 02/26/19 03:40 Pulse 57 L 02/26/19 03:40 Resp 20 02/26/19 03:40 BP 142/92 H 02/26/19 03:40 Pulse Ox 97 02/26/19 03:40 Weight - Most Recent: 82.463 kg I&O - Last 24 Hours: Intake & Output 02/25/19 02/26/19 02/26/19 22:59 06:59 14:59 Intake Total 3795 800 Output Total 2350 1200 Balance 1445 -400 Lab Results Last 24 Hours: Laboratory Results - last 24 hr 02/25/19 Range/Units 15:23 Vitamin D 25-Hydroxy 13.2 L (30.0-100.0) ng/ml Med Orders - Current: Current Medications Acetaminophen (Tylenol) 650 mg PO Q4H PRN PRN Reason: Pain Last Admin: 02/26/19 08:29 Dose: 650 mg Lorazepam (Ativan) 1 mg IVPUSH Q1H PRN PRN Reason: Agitation Morphine Sulfate (Morphine) 2 mg IVPUSH Q2H PRN PRN Reason: Pain Last Admin: 02/26/19 06:14 Dose: 2 mg Ondansetron HCl (Zofran) 4 mg IVPUSH Q4H PRN PRN Reason: Nausea Last Admin: 02/26/19 08:31 Dose: 4 mg Sodium Chloride (Saline Flush) 10 ml FLUSH ASDIRECTED PRN PRN Reason: Keep Vein Open Last Admin: 02/23/19 10:57 Dose: 10 ml Discontinued Medications Diatrizoate Meglum/Diatrizoate Sod (Gastrografin 37%) 90 ml PO ONETIME ONE Stop: 02/23/19 15:35 Last Admin: 02/23/19 15:41 Dose: 90 ml Fentanyl (Sublimaze) 50 mcg IVPUSH ONETIME ONE Stop: 02/23/19 17:19 Last Admin: 02/23/19 17:40 Dose: 50 mcg Fentanyl (Sublimaze) Confirm Administered Dose 100 mcg .ROUTE .STK-MED ONE Stop: 02/24/19 09:55 Hydromorphone HCl (Dilaudid) 1 mg IVPUSH ONETIME ONE Stop: 02/23/19 10:16 Last Admin: 02/23/19 10:41 Dose: 1 mg Hydromorphone HCl (Dilaudid) 1 mg IVPUSH ONETIME ONE Stop: 02/23/19 13:08 Last Admin: 02/23/19 13:16 Dose: 1 mg Sodium Chloride (Normal Saline) 1,000 mls @ 1,000 mls/hr IV .BOLUS STA Stop: 02/23/19 11:13 Last Admin: 02/23/19 10:41 Dose: 1,000 mls/hr Sodium Chloride (Normal Saline) 1,000 mls @ 200 mls/hr IV ASDIRECTED [facility] Last Admin: 02/23/19 14:12 Dose: 200 mls/hr Potassium Chloride/Dextrose/Sod Cl (D5 1/2 Ns W/ 20 Meq/L Kcl) 1,000 mls @ 85 mls/hr IV ASDIRECTED [facility] Last Admin: 02/25/19 02:34 Dose: 85 mls/hr Lidocaine HCl (Xylocaine-Mpf 1%) Confirm Administered Dose 4 mls @ as directed .ROUTE .STK-MED ONE Stop: 02/24/19 09:56 Lactated Ringer's (Ringers, Lactated) Confirm Administered Dose 1,000 mls @ as directed .ROUTE .STK-MED ONE Stop: 02/24/19 10:13 Iopamidol (Isovue-300 (61%)) 100 ml IVPUSH ONETIME ONE Stop: 02/23/19 15:35 Last Admin: 02/23/19 15:43 Dose: 100 ml Lorazepam (Ativan) 1 mg IVPUSH ONETIME ONE Stop: 02/23/19 17:14 Last Admin: 02/23/19 17:41 Dose: 1 mg Midazolam HCl (Versed 1 Mg/Ml) Confirm Administered Dose 2 mg .ROUTE .STK-MED ONE Stop: 02/24/19 09:56 Ondansetron HCl (Zofran) 4 mg IVPUSH ONETIME ONE Stop: 02/23/19 10:15 Last Admin: 02/23/19 10:41 Dose: 4 mg Ondansetron HCl (Zofran) 4 mg IVPUSH ONETIME ONE Stop: 02/23/19 14:37 Last Admin: 02/23/19 15:28 Dose: 4 mg Ondansetron HCl (Zofran) 4 mg IVPUSH ONETIME ONE Stop: 02/23/19 17:14 Last Admin: 02/23/19 17:36 Dose: 4 mg Ondansetron HCl (Zofran) Confirm Administered Dose 4 mg .ROUTE .STK-MED ONE Stop: 02/24/19 09:54 Propofol (Diprivan 20 Ml) Confirm Administered Dose 200 mg .ROUTE .STK-MED ONE Stop: 02/24/19 09:55 Sodium Chloride (Saline Flush) 10 ml FLUSH ONETIME ONE Stop: 02/23/19 15:35 Last Admin: 02/23/19 15:43 Dose: 10 ml Succinylcholine Chloride (Succinylcholine In Ns Pf) Confirm Administered Dose 100 mg .ROUTE .STK-MED ONE Stop: 02/24/19 09:56 - Exam General: Alert, Oriented, Cooperative, No Acute Distress HEENT: Pupils Equal, Pupils Reactive, EOMI, Mucous Membr. Moist/[employer] Neck: Supple Lungs: Clear to Auscultation, Normal Respiratory Effort Cardiovascular: Regular Rate, Regular Rhythm GI/Abdominal Exam: Normal Bowel Sounds, Soft, No Organomegaly, No Distention, No Abnormal Bruit, No Mass, Tender (mildly tender on left lower quandrant) (Male) Exam: Deferred Back Exam: Normal Inspection, Decreased Range of Motion Extremities: Normal Inspection, Normal Range of Motion, Non-Tender, No Pedal Edema, Normal Capillary Refill Peripheral Pulses: 2+: Posterior Tibial (L), Posterior Tibial (R), Dorsalis Pedis (L), Dorsalis Pedis (R) Skin: Warm, Dry, Intact Neurological: No New Focal Deficit Psy/Mental Status: Alert, Normal Affect, Normal Mood Consult PN Assessment/Plan Procedures: Procedures COMPLETE CBC W/AUTO DIFF WBC (01/22/19) COMPREHEN METABOLIC PANEL (01/22/19) EMERGENCY DEPT VISIT (01/22/19) HYDRATE IV INFUSION ADD-ON (01/22/19) ROUTINE VENIPUNCTURE (01/22/19) THER/PROPH/DIAG INJ IV PUSH (01/22/19) URINALYSIS AUTO W/SCOPE (01/22/19) Problem List Initiated/Reviewed/Updated: Yes My Orders Last 24 Hours: My Active Orders 02/25/19 13:15 DRUG SCR 10 W REF CONF SERUM [REF] Stat 02/25/19 15:23 TTG IGA/G [REF] Routine 02/25/19 Dinner Gluten Free Diet [DIET] 02/26/19 09:00 Cholecalciferol (Vitamin D3) [Vitamin D3] 5,000 unit PO DAILY Plan: Assessment: This is a 43 yo white male with 6 months hx/o interment watery to loose diarrhea who has a negative EGD. Watery-Loose Diarrhea, Improved - Suspect Functional Diarrhea vs Autoimmune Disease - No hx/o IBD or Autoimmune Disease - No recent travel outside the country, no recent antibiotic use in the past 90 days and no unusual diet or drinks - He is concern about Hanta Virus exposure - UDS negative - Celiac work up: TTG - No issues with Gluten Free Diet - Avoid dairy products - Offered to screen for HIV-patient refused - Would not pursue Hanta Virus since management will not change - Need to see GI outpatient for further evaluation Vit D Deficiency - Vit D level of 13.2 - Oral supplement 1 tab po daily Plan: From the hospitalist standpoint, we recommend to continue with gluten free diet and see GI after discharge. Patient is aware TTG test takes about a week or so for it to come back. Hence, keeping him in the hospital is not prudent. Informed patient, we will notify his PCP as soon as we receive his test result. We will now sign off on his case. Please feel free to call us back for any further questions or concerns.
[2019-02-26] MEDS ORDERED: Cholecalciferol (Vitamin D3) 5,000 UNIT Tab PO SCH (09:00)
--- NOTE | 2019-02-26 09:43 | US ---
Limited abdominal ultrasound: Multiple real-time images of the spleen were obtained. Spleen length is normal at 11.7 cm. Left kidney length is 10.7 cm. Impression: 1. Normal size of spleen and left kidney. Diagnostic code #1 I agree with preliminary report from [facility], finalized on 02/23/19, 2:59 PM Central Time
--- NOTE | 2019-02-26 10:28 | CT ---
CT abdomen and pelvis Technique: Multiple axial sections were obtained from above the dome of the diaphragm inferiorly through the pubic symphysis. Intravenous and oral contrast was utilized. Majority of the contrast remains within the stomach. Delayed images were also obtained through the bladder. Comparison: No prior CT exam. Findings: Contrast reflux seen within the distal esophagus. Wall thickening noted within the distal esophagus compatible with changes of chronic reflux esophagitis. Visualized lung bases show nothing acute. Fatty infiltration noted throughout the liver. No focal abnormality is appreciated within the liver. Gallbladder contains no calcified gallstones. Spleen appears within normal limits. Adrenal glands show no nodule. Kidneys show symmetric contrast enhancement without hydronephrosis or mass. Adrenal glands show no nodule. Pancreas is within normal limits. Aorta shows no aneurysm. No retroperitoneal adenopathy or mesenteric abnormalities are seen. No pelvic mass or adenopathy is seen. Appendix not seen. Surgical material seen around the tip of the cecum presumably from prior appendectomy. Delayed images show contrast within the distal ureters and bladder. No free fluid or inflammatory change is seen. Bone window settings were reviewed which appear within normal limits for the patient's age. Artifact noted posteriorly from electrostimulating device. Impression: 1. Contrast reflux into the distal esophagus. Distal esophagus shows wall thickening. Findings are felt compatible with chronic reflux esophagitis. 2. Contrast remains primarily within the stomach which most likely represents all the given contrast being drank at one time. I do not believe there is any distal obstructing lesion within the stomach. 3. Fatty infiltration within the liver. 4. Nothing acute is appreciated on CT study of the abdomen and pelvis. Diagnostic code #3 Mostly agree with preliminary report from [facility] (see above for further discussion), finalized on 02/23/19, 4:59 PM Central Time, code #2
--- NOTE | 2019-02-27 01:33 | DISCH ---
ADMISSION DATE: 02/23/2019 DISCHARGE DATE: 02/26/2019 ADMITTING DIAGNOSES: Nausea, vomiting, abdominal pain, diarrhea, duodenal obstruction, question of duodenitis. DISCHARGE DIAGNOSIS: Likely celiac disease. HOSPITAL COURSE: The patient was admitted through the ED complaining of a several-week history of abdominal pain associated with nausea, vomiting. He also complained of diarrhea for the last 6 months. The patient has an extensive workup. He had an ultrasound of his abdomen because of a recent diagnosis of mononucleosis. Spleen was within normal limits on ultrasound. CT scan of the abdomen also was notable for a large bolus of contrast within the stomach with gastric distention and no contrast had made its way past the 3rd portion of the duodenum, raising the concern for duodenal obstruction. He was admitted overnight. He had very mild leukocytosis. Multiple attempts were made to pass the nasogastric tube to decompress him prior to anesthesia, but eventually these attempts were unsuccessful and he refused any further attempts. He had an uneventful EGD, which demonstrated a normal stomach and he has a normal duodenum. The esophagus appeared normal. He had no ulcerations. There was no evidence of duodenal obstruction. No evidence of duodenitis. He had some mild grade 1 esophagitis. His H pylori assay was negative. C diff was also checked and this was also negative for white cells in the stool. His diet was advanced. He continued to have multiple bowel movements per day. I asked for Dr. Villaseñor to see him for other input during his consultation. The patient revealed that he had a daughter, who tested positive for celiac disease. He was started on a gluten- free diet and this seems to have improved his diarrhea. His abdominal pain is also improved, but still persistent. He says he is probably able to go home. At this point, suggested a gluten-free diet, and I have also asked him to follow up with his doctor to arrange for a consult with a regulatory submissions associate. He is safe for discharge at this point. He has his ride coming at 6 p.m., so I will do the paperwork for now. We can discharge him when his ride arrives. He has expressed understanding. We have given him some literature on a gluten-free diet. A friend to read at home, and for now he is safe for discharge. FINAL DIAGNOSIS: DISCHARGE MEDICATIONS: DIET: ACTIVITY: FOLLOW-UP: CONDITION ON DISCHARGE: MMODAL /[id number]
== END 2019-02-26 17:52 | disposition home or self-care (01) | DRG 392 ==
LOC: JD.ED 09:47 → JD.MS 19:34
PROVIDERS: ADMIT Surgery; ATTEND Surgery
PROC: 0DJ08ZZ Inspection of Upper Intestinal Tract, Via Natural or Artificial Opening Endoscopic (ICD-10-PCS; principal; 2019-02-24)
DX: K90.0 Celiac disease (principal); K31.89 Other diseases of stomach and duodenum; K20.9 Esophagitis, unspecified; F17.210 Nicotine dependence, cigarettes, uncomplicated; H54.7 Unspecified visual loss; E55.9 Vitamin D deficiency, unspecified; B27.90 Infectious mononucleosis, unspecified without complication; Z90.49 Acquired absence of other specified parts of digestive tract; Z79.899 Other long term (current) drug therapy; Z90.89 Acquired absence of other organs; Z98.1 Arthrodesis status
CPT/HCPCS: 00731; 36415; 74177; 74177-26; 76705; 76705-26; 80048; 80053; 80307; 81001; 82306; 83516; 83690; 85025; 87338; 87493; 89055; 96361; 96374; 96375; 96376; 99285; 99285-25; A9270-GY; J0330; J1170; J2001; J2060; J2250; J2270; J2405; J2704; J3010; J3480; J7040; J7120; Q9963; Q9967

== ENCOUNTER 2019-03-28 20:51 | Emergency (ER) | payer SELFPAY ==
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
--- NOTE | 2019-03-29 07:13 | CR ---
Left hand: Four views of the left hand were obtained. Comparison: No previous and exam. Soft tissue swelling is identified. No discrete fracture, dislocation or other bony abnormality is seen. Impression: 1. Soft tissue swelling. 2. No acute bony abnormality is appreciated. Diagnostic code #2
--- NOTE | 2019-03-29 07:13 | CR ---
Left wrist: Four views of the left wrist were obtained. Comparison: No prior wrist study. Joint spaces are preserved. No fracture, dislocation or other bony abnormality is seen. Impression: 1. No abnormality is seen on the left wrist exam. Diagnostic code #1
== END 2019-03-28 22:15 | disposition home or self-care (01) ==
LOC: JD.ED 20:51
DX: S60.212A Contusion of left wrist, initial encounter (principal); S60.222A Contusion of left hand, initial encounter; F17.210 Nicotine dependence, cigarettes, uncomplicated; W20.8XXA Other cause of strike by thrown, projected or falling object, initial encounter; Y92.89 Other specified places as the place of occurrence of the external cause; Y99.0 Civilian activity done for income or pay
CPT/HCPCS: 73110-26-LT; 73110-LT; 73120-26-LT; 73120-LT; 99283; 99283-25